=== PATIENT | female | born 1960 | race Caucasian/White ===

== ENCOUNTER 2017-12-04 11:17 | Emergency (ER) | payer OTHER ==
[~2017-12-04] VITALS: Ht 165.1 cm; Wt 102.5 kg
[2017-12-04 11:33] VITALS: BP_SYST 143
[2017-12-04] MEDS ORDERED: KETOROLAC TROMETHAMINE 60 MG/2 ML VIAL IM ONE (13:00)
[2017-12-04 13:16] VITALS: BP_SYST 132
== END 2017-12-04 13:16 | disposition home or self-care (01) ==
LOC: SED 11:17
DX: S93.401A Sprain of unspecified ligament of right ankle, initial encounter (principal); S83.92XA Sprain of unspecified site of left knee, initial encounter; M54.5 Low back pain; G89.29 Other chronic pain; J45.909 Unspecified asthma, uncomplicated; E11.9 Type 2 diabetes mellitus without complications; R03.0 Elevated blood-pressure reading, without diagnosis of hypertension; Z98.890 Other specified postprocedural states; W19.XXXA Unspecified fall, initial encounter; Y93.89 Activity, other specified; Y92.89 Other specified places as the place of occurrence of the external cause; Y99.2 Volunteer activity
CPT/HCPCS: 72100; 73564; 73610; 96372; 99284; J1885

== ENCOUNTER 2020-06-08 23:23 | Emergency (ER) | payer BC, OTHER ==
[~2020-06-08] VITALS: Ht 165.1 cm; Wt 99.8 kg
[2020-06-08 23:23] VITALS: BP_SYST 151
[2020-06-09] MEDS ORDERED: cefTRIAXone 250 MG in LIDOCAINE 1%, 20 ML MDV 0.9 ML IM ONE (00:45)
[2020-06-09] MEDS ORDERED: CLINDAMYCIN PHOSPHATE 300 MG/2 ML VIAL IM ONE (00:45)
[2020-06-09] MEDS ORDERED: HYDROcodone/ACETAMIN 10-325 MG TAB PO ONE (00:45)
[2020-06-09] MEDS ORDERED: AMOX-426 PO (01:41)
[2020-06-09] MEDS ORDERED: HYDR-3917 PO (01:41)
[2020-06-09] MEDS ORDERED: SULF1TAB48 PO (01:41)
[2020-06-09 02:05] VITALS: BP_SYST 148
== END 2020-06-09 02:05 | disposition home or self-care (01) ==
LOC: SED 23:23
DX: L03.012 Cellulitis of left finger (principal); E11.9 Type 2 diabetes mellitus without complications; J45.909 Unspecified asthma, uncomplicated; Z88.6 Allergy status to analgesic agent; W54.0XXA Bitten by dog, initial encounter; Y93.89 Activity, other specified; Y92.89 Other specified places as the place of occurrence of the external cause; Y99.8 Other external cause status
CPT/HCPCS: 73140; 82962; 96372; 99284; J0696; J2001; J3490